=== PATIENT | male | born 1995 | race African-American/Black ===

== ENCOUNTER 2019-08-04 17:17 | Emergency (ER) | payer OTHER ==
[2019-08-04] MEDS ORDERED: LIDOCAINE 1% MPF 5 ML VIAL ONE (17:28)
--- NOTE | 2019-08-04 18:01 | EDPHYS ---
Physician Documentation [facility] Name: Wilfredo Redding Age: 24 yrs Sex: Male : 1995 Arrival Date: 08/04/2019 Time: 17:18 Bed 27 Private MD: ED Physician Genaro Muñiz HPI: 08/04 17:53 This 24 yrs old Black Male presents to ER via Unassigned with complaints of laceration .la1 17:53 The patient has a laceration related to: doing a pullup occurred group home. The la1 laceration(s) is(are) located on the dorsal aspect of distal phalanx of right ring finger. Onset: The symptoms/episode began/occurred just prior to arrival. Pt was doing a pull up in group home and slipped, when falling cut the distal tip of his right fourth finger. Historical: - Allergies: 18:24 No Known Allergies; tr5 - PMHx: 18:24 None; tr5 - PSHx: 18:24 None; tr5 - Immunization history:: Adult Immunizations up to date. - Social history:: Smoking status: unknown. - Ebola Screening: : No symptoms or risks identified at this time. ROS: 17:56 Constitutional: Negative for fever, chills, and weight loss, Eyes: Negative for injury, la1 pain, redness, and discharge, ENT: Negative for injury, pain, and discharge, Neck: Negative for injury, pain, and swelling, Cardiovascular: Negative for chest pain, palpitations, and edema, Respiratory: Negative for shortness of breath, cough, wheezing, and pleuritic chest pain, Abdomen/GI: Negative for abdominal pain, nausea, vomiting, diarrhea, and constipation, MS/Extremity: Negative for injury and deformity, Neuro: Negative for headache, weakness, numbness, tingling, and seizure. 17:56 Skin: Positive for laceration(s), of the dorsal aspect of distal phalanx of right ring finger. Exam: 17:56 Constitutional: This is a well developed, well nourished patient who is awake, alert, la1 and in no acute distress. Head/Face: Normocephalic, atraumatic. Chest/axilla: Normal chest wall appearance and motion. Nontender with no deformity. No lesions are appreciated. Cardiovascular: Regular rate and rhythm with a normal S1 and S2. No gallops, murmurs, or rubs. Normal PMI, no JVD. No pulse deficits. 17:56 Skin: laceration to distal tip of right ring finger, clean, linear, about 2cm. Vital Signs: 17:50 BP 128 / 78; Pulse 65; Resp 16; Temp 98.2(O); Pulse Ox 99% on R/A; tr5 Laceration: 17:57 Wound Repair of 2cm ( 0.8in ) subcutaneous laceration to dorsal aspect of distal la1 phalanx of right ring finger. Distal neuro/vascular/tendon intact. Anesthesia: Digital block administered with 4 mls of 1% lidocaine. Wound prep: Moderate cleansing, Copious irrigation. Skin closed with 4-0 Prolene using simple sutures and sterile technique. Patient tolerated well. MDM: 17:58 Data reviewed: vital signs, nurses notes, and as a result, I will discharge patient. la1 Counseling: I had a detailed discussion with the patient and/or guardian regarding: the historical points, exam findings, and any diagnostic results supporting the discharge/admit diagnosis, the need for outpatient follow up, a family practitioner. 18:00 Patient medically screened. la1 08/04 17:24 Order name: Suture Tray at Bedside; Complete Time: 17:54 la1 Administered Medications: 17:55 Drug: Lidocaine (1 %) 5 mg Route: Infiltration; tr5 18:08 Drug: Motrin 800 mg Route: PO; tr5 18:22 Follow up: Response: No adverse reaction tr5 Disposition: 08/05 07:41 Co-signature as Attending Physician, Genaro Muñiz MD I agree with the assessment and kdr plan of care. Disposition: 08/04/19 18:00 Discharged to Home. Impression: Laceration without foreign body of finger without damage to nail. - Condition is Stable. - Discharge Instructions: Laceration Care, Adult, Sutured Wound Care. - Medication Reconciliation Form, Thank You Letter form. - Follow up: Private Physician; When: 7 - 10 days; Reason: Recheck today's complaints, Re-evaluation by your physician. - Problem is new. - Symptoms have improved. - Notes: Have sutures removed in 7-10 days at medical insurance claims specialist discression, reports signs or symptoms of infection to your medical provider. Signatures: Genaro Muñiz MD MD kdr Kobi Cameron, LIFT TRUCK OPERATOR-C LIFT TRUCK OPERATOR-Cla1 Renato Julio, RN RN tr5 Corrections: (The following items were deleted from the chart) 08/04 18:31 18:00 08/04/2019 18:00 Discharged to Home. Impression: Laceration without foreign body tr5 of finger without damage to nail. Condition is Stable. Forms are Medication Reconciliation Form, Thank You Letter, Antibiotic Education, Prescription Opioid Use. Follow up: Private Physician; When: 7 - 10 days; Reason: Recheck today's complaints, Re-evaluation by your physician. Problem is new. Symptoms have improved. la1
[2019-08-04] MEDS ORDERED: IBUPROFEN 400 MG TAB ONE (18:04)
--- NOTE | 2019-08-04 18:33 | ER ---
Nurse's Notes [facility] Name: Wilfredo Redding Age: 24 yrs Sex: Male : 1995 Arrival Date: 08/04/2019 Time: 17:18 Bed 27 Private MD: Diagnosis: Laceration without foreign body of finger without damage to nail Presentation: 08/04 17:45 Presenting complaint: Patient states: "I was exercising and doing pull-ups when i cut tr5 my finger on my locker.". Transition of care: patient was not received from another setting of care. Onset of symptoms was August 04, 2019. Risk Assessment: Do you want to hurt yourself or someone else? Patient reports no desire to harm self or others. Initial Sepsis Screen: Does the patient meet any 2 criteria? No. Patient's initial sepsis screen is negative. Does the patient have a suspected source of infection? No. Patient's initial sepsis screen is negative. Care prior to arrival: None. 17:45 Method Of Arrival: Law Enforcement: [place] [employer] tr5 17:45 Acuity: MYRIAM 3 tr5 Historical: - Allergies: 18:24 No Known Allergies; tr5 - PMHx: 18:24 None; tr5 - PSHx: 18:24 None; tr5 - Immunization history:: Adult Immunizations up to date. - Social history:: Smoking status: unknown. - Ebola Screening: : No symptoms or risks identified at this time. Screenin:50 Abuse screen: Denies threats or abuse. Nutritional screening: No deficits noted. tr5 Tuberculosis screening: No symptoms or risk factors identified. Fall Risk None identified. Assessment: 17:50 General: Appears in no apparent distress. Behavior is calm, cooperative, appropriate tr5 for age. Pain: Complains of pain in palmar aspect of distal phalanx of right ring finger. Neuro: Level of Consciousness is awake, alert, obeys commands, Oriented to person, place, time. Cardiovascular: Heart tones present. Respiratory: Airway is patent Respiratory effort is even, unlabored, Respiratory pattern is regular, symmetrical, Breath sounds are clear. GI: No signs and/or symptoms were reported involving the gastrointestinal system. : No signs and/or symptoms were reported regarding the genitourinary system. EENT: No signs and/or symptoms were reported regarding the EENT system. Musculoskeletal: No signs and/or symptoms reported regarding the musculoskeletal system. Injury Description: Laceration sustained to right hand. Vital Signs: 17:50 BP 128 / 78; Pulse 65; Resp 16; Temp 98.2(O); Pulse Ox 99% on R/A; tr5 ED Course: 17:18 Patient arrived in ED. tr5 17:18 K[facility] Cameron [facility]C [facility] la1 17:18 Genaro Muñiz MD is Attending Physician. la1 17:50 Bed in low position. Call light in reach. Side rails up X 1. tr5 17:54 Renato Julio RN is Primary Nurse. tr5 18:24 Triage completed. tr5 18:24 Arm band placed on Patient placed. tr5 18:29 No provider procedures requiring assistance completed. Patient did not have IV access tr5 during this emergency room visit. Administered Medications: 17:55 Drug: Lidocaine (1 %) 5 mg Route: Infiltration; tr5 18:08 Drug: Motrin 800 mg Route: PO; tr5 18:22 Follow up: Response: No adverse reaction tr5 Outcome: 18:00 Discharge ordered by . la1 18:29 Discharged to Law Enforcement tr5 18:29 Condition: stable 18:29 Discharge instructions given to patient, Instructed on discharge instructions, follow up and referral plans. Demonstrated understanding of instructions, follow-up care. 18:31 Patient left the ED. tr5 Signatures: Kobi Cameron FNP-C HOME PERFORMANCE LABORER-Cla1 Renato Julio RN RN tr5
[2019-08-04 19:08] VITALS: BP 128/78; TEMP 98.2; O2SAT 99
== END 2019-08-04 18:31 | disposition home or self-care (01) ==
LOC: ER 17:17
PROC: 0JQJ0ZZ Repair Right Hand Subcutaneous Tissue and Fascia, Open Approach (ICD-10-PCS; principal; 2019-08-04)
DX: S61.214A Laceration without foreign body of right ring finger without damage to nail, initial encounter (principal); Y93.B1 Activity, exercise machines primarily for muscle strengthening; Y93.89 Activity, other specified; Y92.9 Unspecified place or not applicable
CPT/HCPCS: 99283